=== PATIENT | female | born 1945 | race Caucasian/White ===

== ENCOUNTER → 2019-07-04 | Outpatient (CLI) | payer OTHER ==
[2019-07-04 11:27] LABS: BASOPHILS ABSOLUTE AUTO 0.01 K/mm3 (0.00-0.23); BASOPHILS PERCENT AUTO 0 % (0-2); EOSINOPHILS ABSOLUTE AUTO 0.22 K/mm3 (0.00-0.68); EOSINOPHILS PERCENT AUTO 5 % (0-6); Hematocrit 27.9 % (33.0-51.0); Hemoglobin 8.8 g/dL (11.5-16.0); IMMATURE GRAN ABSOLUTE AUTO 0.02 K/mm3 (0.00-0.10); IMMATURE GRAN PERCENT AUTO 1 % (0-1); LYMPHOCYTES ABSOLUTE AUTO 1.41 K/mm3 (0.84-5.20); LYMPHOCYTES PERCENT AUTO 32 % (21-46); MONOCYTES ABSOLUTE AUTO 0.27 K/mm3 (0.16-1.47); MONOCYTES PERCENT AUTO 6 % (4-13); Mean Corpuscular HGB 30.8 pg (26.0-34.0); Mean Corpuscular HGB Conc 31.5 g/dL (31.5-36.5); Mean Corpuscular Volume 98 fL (80-100); NEUTROPHILS ABSOLUTE AUTO 2.42 K/mm3 (1.96-9.15); NEUTROPHILS PERCENT AUTO 56 % (41-73); Platelet Count 133 K/mm3 (150-400); RDW Coefficient Variation 15.1 % (11.7-14.2); RDW Standard Deviation 54.4 fL (35.1-46.3); Red Blood Cell Count 2.86 M/mm3 (3.80-5.20); White Blood Cell Count 4.35 K/mm3 (4.00-11.30)
[2019-07-04 11:28] LABS: Mean Platelet Volume 13.2 fL (9.1-12.4)
[2019-07-04 11:32] LABS: Albumin, Blood 3.2 g/dL (3.4-5.0); Bilirubin, Total 0.6 mg/dL (0.1-1.0); Calcium, Blood 8.1 mg/dL (8.5-10.1); Creatinine, Blood 1.22 mg/dL (0.40-1.00); Globulin, Blood 3.1 g/dL (2.2-4.0); Potassium, Blood 4.4 mmol/L (3.5-5.5); Total Protein, Blood 6.3 g/dL (6.4-8.2)
== END | disposition home or self-care (01) ==
LOC: LAB SHORT 10:57 → LAB 10:57
PROVIDERS: Registered Nurse Oncology
DX: C34.90 Malignant neoplasm of unspecified part of unspecified bronchus or lung (principal)
CPT/HCPCS: 80053; 85025

== ENCOUNTER 2019-07-24 11:14 | Inpatient (IN) | payer OTHER ==
[~2019-07-24] VITALS: Ht 154.9 cm; Wt 84.6 kg
[2019-07-24 11:58] LABS: PCO2 Arterial 40.6 mmHg (35-45); PO2 Arterial 63.7 mmHg (80-100); pH Blood Arterial 7.44 (7.35-7.45)
[2019-07-24] MEDS ORDERED: OMEPRAZOLE20 MG PO (12:06)
[2019-07-24] MEDS ORDERED: DICLOFENAC SOD100 G1 TOP (12:06)
[2019-07-24] MEDS ORDERED: SPIRIVA RESPIMAT4 GM INH (12:07)
[2019-07-24] MEDS ORDERED: ZOFRAN8 MG PO (12:07)
[2019-07-24] MEDS ORDERED: FLUTICASONE-SA1 EAC4 INH (12:07)
[2019-07-24] MEDS ORDERED: LINZESS290 MCG PO (12:07)
[2019-07-24] MEDS ORDERED: Fosinopril Sodi40 MG PO (12:09)
[2019-07-24] MEDS ORDERED: IPRATROPIUM 0.02% (12:09)
[2019-07-24] MEDS ORDERED: Carvedilol25 MG PO (12:09)
[2019-07-24] MEDS ORDERED: Simvastatin40 MG PO (12:09)
[2019-07-24] MEDS ORDERED: FUROSEMIDE20 MG PO (12:09)
[2019-07-24 12:32] LABS: Hematocrit 29.2 % (33.0-51.0); Hemoglobin 9.2 g/dL (11.5-16.0); Mean Corpuscular HGB Conc 31.5 g/dL (31.5-36.5); Mean Corpuscular Volume 98 fL (80-100); Mean Platelet Volume 11.8 fL (9.1-12.4); Platelet Count 155 K/mm3 (150-400); RDW Coefficient Variation 14.1 % (11.7-14.2); RDW Standard Deviation 50.7 fL (35.1-46.3); Red Blood Cell Count 2.97 M/mm3 (3.80-5.20); White Blood Cell Count 6.03 K/mm3 (4.00-11.30)
[2019-07-24 12:47] LABS: Alanine Aminotransfer (ALT/SGP 16 U/L (12-78); Albumin, Blood 3.2 g/dL (3.4-5.0); Albumin/Globulin Ratio 0.9 (0.8-1.8); Alk Phos 55 U/L (50-136); Anion Gap 9 mmol/L (6-16); Aspartate Aminotrans (AST/SGOT 19 U/L (12-37); Bilirubin, Total 0.7 mg/dL (0.1-1.0); Blood Urea Nitrogen 16 mg/dL (8-24); Bun/Creatinine Ratio 19.2 (12.0-20.0); CO2, Blood 26 mmol/L (21-32); Calcium, Blood 8.8 mg/dL (8.5-10.1); Chloride, Blood 101 mmol/L (98-108); Creatinine, Blood 0.83 mg/dL (0.40-1.00); Globulin, Blood 3.7 g/dL (2.2-4.0); Glomerular Filtration Rate >60 (60-); Glucose, Blood 86 mg/dL (70-99); Potassium, Blood 4.4 mmol/L (3.5-5.5); Sodium, Blood 136 mmol/L (136-145); Total Protein, Blood 6.9 g/dL (6.4-8.2)
[2019-07-24 12:55] LABS: BAND PERCENT MAN 6 % (0-8); BASOPHILS PERCENT MAN 0 % (0-2); EOSINOPHILS PERCENT MAN 0 % (0-6); LYMPHOCYTES ABSOLUTE MAN 0.72 K/mm3 (0.84-5.20); LYMPHOCYTES PERCENT MAN 12 % (21-46); MONOCYTES ABSOLUTE MAN 0.24 K/mm3 (0.16-1.47); MONOCYTES PERCENT MAN 4 % (4-13); NEUTROPHILS ABSOLUTE MAN 5.06 K/mm3 (1.96-9.15); SEG NEUTROPHILS PERCENT MAN 78 % (41-73); TOTAL CELLS COUNTED 100
[2019-07-24] MEDS ORDERED: Aspir 8181 MG PO (15:53)
[2019-07-24] MEDS ORDERED: ALBU90OI INH (15:53)
[2019-07-24] MEDS ORDERED: LUTEIN20 MG PO (15:54)
[2019-07-24] MEDS ORDERED: [UNRECOGNIZED DRUG - CODE] PO (15:54)
[2019-07-24] MEDS ORDERED: Folic Acid0.8 MG PO (15:55)
[2019-07-24] MEDS ORDERED: Loratadine10 MG PO (15:55)
[2019-07-24] MEDS ORDERED: SENNA PLUS 8.61 EACH PO (15:56)
--- NOTE | 2019-07-24 17:28 | NUR ---
PT AOX4 AND COOPERATIVE OF CARE. PT RESTING IN BED AT THIS TIME AND IS ABLE TO ANSWER ALL QUESTIONS. FAMILY PRESENT. PT CURRENTLY ON 4L O2 NASAL CANNULA. WILL CONTINUE TO MONITOR.
--- NOTE | 2019-07-25 01:56 | NUR ---
PHYSICIAN COMMUNICATION GOT A HOLD OF THE FIELD EDUCATION COORDINATOR PHYSICIAN AT 0020 ABOUT THE NEED FOR A 250 ML NS KVO BAG FOR WHEN SHE RECEIVES HER IV ANTIBIOTICS. DR DENTON ORDERED WHAT WAS ASKED FOR.
--- NOTE | 2019-07-25 05:30 | NUR ---
SHIFT SUMMARY PATIENT ALERT AND ORIENTED. VERY PLEASANT TO WORK WITH. SHE HAD NO COMPLAINTS OF PAIN OVERNIGHT AND WAS ABLE TO SLEEP WELL. IV PATENT AND FLUSHED. BED IN LOWEST POSITION WITH WHEELS LOCKED. PATIENT CALLS APPROPRIATELY. CALL LIGHT AND BELONGINGS WITHIN REACH. REPORT GIVEN TO ONCOMING RN.
[2019-07-25 05:37] LABS: BASOPHILS ABSOLUTE AUTO 0.01 K/mm3 (0.00-0.23); BASOPHILS PERCENT AUTO 0 % (0-2); EOSINOPHILS PERCENT AUTO 0 % (0-6); Hematocrit 23.2 % (33.0-51.0); Hemoglobin 7.4 g/dL (11.5-16.0); IMMATURE GRAN ABSOLUTE AUTO 0.02 K/mm3 (0.00-0.10); IMMATURE GRAN PERCENT AUTO 1 % (0-1); LYMPHOCYTES ABSOLUTE AUTO 0.34 K/mm3 (0.84-5.20); LYMPHOCYTES PERCENT AUTO 8 % (21-46); MONOCYTES ABSOLUTE AUTO 0.07 K/mm3 (0.16-1.47); MONOCYTES PERCENT AUTO 2 % (4-13); Mean Corpuscular HGB 30.8 pg (26.0-34.0); Mean Corpuscular HGB Conc 31.9 g/dL (31.5-36.5); Mean Corpuscular Volume 97 fL (80-100); NEUTROPHILS ABSOLUTE AUTO 3.65 K/mm3 (1.96-9.15); NEUTROPHILS PERCENT AUTO 89 % (41-73); Platelet Count 125 K/mm3 (150-400); RDW Standard Deviation 49.3 fL (35.1-46.3); White Blood Cell Count 4.09 K/mm3 (4.00-11.30)
[2019-07-25 05:59] LABS: Percent Saturation 10.1 % (15.0-50.0)
[2019-07-25 06:07] LABS: Alanine Aminotransfer (ALT/SGP 14 U/L (12-78); Albumin, Blood 2.5 g/dL (3.4-5.0); Albumin/Globulin Ratio 0.7 (0.8-1.8); Alk Phos 48 U/L (50-136); Anion Gap 8 mmol/L (6-16); Aspartate Aminotrans (AST/SGOT 16 U/L (12-37); Bilirubin, Total 0.4 mg/dL (0.1-1.0); Blood Urea Nitrogen 22 mg/dL (8-24); Bun/Creatinine Ratio 25.4 (12.0-20.0); CO2, Blood 25 mmol/L (21-32); Calcium, Blood 8.1 mg/dL (8.5-10.1); Chloride, Blood 103 mmol/L (98-108); Creatinine, Blood 0.87 mg/dL (0.40-1.00); Globulin, Blood 3.5 g/dL (2.2-4.0); Glomerular Filtration Rate >60 (60-); Glucose, Blood 155 mg/dL (70-99); Potassium, Blood 4.1 mmol/L (3.5-5.5); Sodium, Blood 136 mmol/L (136-145)
[2019-07-25 06:13] LABS: Thyroid Stimulating Hormone 0.526 uIU/mL (0.360-4.800)
[2019-07-25 11:54] LABS: Adenovirus Not Detected (NOT DETECT); Bordetella pertussis Not Detected (NOT DETECT); Chlamydophila pneumoniae Not Detected (NOT DETECT); Coronavirus 229E Not Detected (NOT DETECT); Coronavirus HKU1 Not Detected (NOT DETECT); Coronavirus NL63 Not Detected (NOT DETECT); Coronavirus OC43 Not Detected (NOT DETECT); Human Metapneumovirus Not Detected (NOT DETECT); Human Rhinovirus/Enterovirus Not Detected (NOT DETECT); Influenza A Not Detected (NOT DETECT); Influenza A/2009-H1 Not Detected (NOT DETECT); Influenza A/H1 Not Detected (NOT DETECT); Influenza A/H3 Not Detected (NOT DETECT); Influenza B Not Detected (NOT DETECT); Mycoplasma pneumoniae Not Detected (NOT DETECT); Parainfluenza Virus 1 Detected (NOT DETECT); Parainfluenza Virus 2 Not Detected (NOT DETECT); Parainfluenza Virus 3 Not Detected (NOT DETECT); Parainfluenza Virus 4 Not Detected (NOT DETECT); Respiratory Syncytial Virus Not Detected (NOT DETECT)
[2019-07-25 12:19] LABS: Hematocrit 22.7 % (33.0-51.0); Hemoglobin 7.2 g/dL (11.5-16.0)
--- NOTE | 2019-07-25 17:50 | NUR ---
PATIENT A/OX4, UP INDEPENDENTLY IN ROOM. 20G IV TO L FA WNL AND SL. WILL RECEIVED 1 UNIT OF BLOOD THIS EVENING FOR HGB OF 7.2. VSS, ON 4LO2 TO MAINTAIN SATS. DENIES ANY PAIN OR DISCOMFORT. READIATION PRECAUTIONS IN PLCE THROUGH 07/26. BRUSING TO MIL, OTHERWISE SKIN INTACT. CALLS APPROPRIATELY FOR ASSISTANCE.
[2019-07-26 05:06] LABS: BASOPHILS PERCENT AUTO 0 % (0-2); EOSINOPHILS PERCENT AUTO 0 % (0-6); Hematocrit 27.4 % (33.0-51.0); Hemoglobin 8.7 g/dL (11.5-16.0); IMMATURE GRAN ABSOLUTE AUTO 0.08 K/mm3 (0.00-0.10); IMMATURE GRAN PERCENT AUTO 2 % (0-1); LYMPHOCYTES ABSOLUTE AUTO 0.65 K/mm3 (0.84-5.20); LYMPHOCYTES PERCENT AUTO 12 % (21-46); MONOCYTES ABSOLUTE AUTO 0.35 K/mm3 (0.16-1.47); MONOCYTES PERCENT AUTO 6 % (4-13); Mean Corpuscular HGB 30.2 pg (26.0-34.0); Mean Corpuscular HGB Conc 31.8 g/dL (31.5-36.5); Mean Corpuscular Volume 95 fL (80-100); Mean Platelet Volume 11.7 fL (9.1-12.4); NEUTROPHILS ABSOLUTE AUTO 4.35 K/mm3 (1.96-9.15); NEUTROPHILS PERCENT AUTO 80 % (41-73); Platelet Count 170 K/mm3 (150-400); RDW Coefficient Variation 14.8 % (11.7-14.2); RDW Standard Deviation 51.3 fL (35.1-46.3); Red Blood Cell Count 2.88 M/mm3 (3.80-5.20); White Blood Cell Count 5.43 K/mm3 (4.00-11.30)
[2019-07-26 05:34] LABS: Albumin, Blood 2.8 g/dL (3.4-5.0); Anion Gap 5 mmol/L (6-16); Blood Urea Nitrogen 22 mg/dL (8-24); Bun/Creatinine Ratio 25.5 (12.0-20.0); CO2, Blood 28 mmol/L (21-32); Calcium, Blood 8.5 mg/dL (8.5-10.1); Chloride, Blood 106 mmol/L (98-108); Creatinine, Blood 0.86 mg/dL (0.40-1.00); Glomerular Filtration Rate >60 (60-); Glucose, Blood 100 mg/dL (70-99); Phosphorus, Blood 2.6 mg/dL (2.5-4.9); Potassium, Blood 4.5 mmol/L (3.5-5.5); Sodium, Blood 139 mmol/L (136-145)
--- NOTE | 2019-07-26 06:14 | NUR ---
HOT CAR OPERATOR SUMMARY PT AAOX4 AND VERY PLEASANT. INDEPENDENT IN ROOM. PT RECIEVED 1 UNIT PRBC'S AT START OF SHIFT, HGB 8.7 THIS AM UP FROM 7.2 YESTERDAY. PT ON 4L O2 VIA NC, WEARS 2L O2 AT BASELINE. O2 SATS 92-94%. PT REPORTED DIFFICULTY BREATHING THIS AM WITH O2 SATS 88-91. ASSISTED PT WITH FLUTTER VALVE. PT ABLE TO COUGH UP MODERATE AMOUNT OF SPUTUM AND STATED HER BREATHING "FEELS A BIT BETTER". O2 SATS BACK UP TO 94% AFTER FLUTTER VALVE USE. VSS, WILL CONTINUE TO MONITOR.
[2019-07-26 14:01] LABS: Stool Occult Blood Guaiac 1 Neg (Neg)
--- NOTE | 2019-07-26 17:52 | NUR ---
PATIENT IS A/OX4, UP INDEPENDENTLY IN ROOM. PATIENT VERY SOB WITH EXERTION AND AT REST SOMETIMES. SATS 96% ON 4LO2, BUT PATIENT DOES NOT WANT IT WEANED. PATIENT COUGHING UP LARGE AMOUNT OF THICK YELLOW SPUTUM TODAY. RT TX SCHEDULED AND PRN. USING FLUTTER VALVE. STARTED ON SLUMEDROL TODAY. PATIENT HAS NOT HAD ANY SLEEP FOR A FEW DAYS NOW AND MELATONIN ORDERED FOR TONIGHT. 20G IV TO R AC WNL AND SL. LEVAQUIN DAILY TO TREAT PNA. CALM AND COOPERATIVE WITH CARE, USES CALL LIGHT APPROPRIATELY FOR ASSISTANCE.
--- NOTE | 2019-07-27 04:24 | NUR ---
SHIFT SUMMARY- PT. A&O, PLEASANT AND COOPERATIVE WITH CARE. INDEPENDENT IN ROOM. PT. HAS BEEN COUGHING OCCASIONALLY T/O THE NIGHT. RECEIVING BREATHING TX'S FROM RT AND USING FLUTTER VALVE WELL. MELATONIN GIVEN PER PT. REQUEST. PT. RESTED COMFORTABLY IN BED, NO APPARENT DISTRESS NOTED. DENIED ANY PAIN OR DISCOMFORT T/O THE NIGHT. CALL LIGHT WITHIN REACH AND SIDE RAILS UP X2. WILL CONT TO MONITOR.
[2019-07-27 05:02] LABS: BASOPHILS PERCENT AUTO 0 % (0-2); EOSINOPHILS PERCENT AUTO 0 % (0-6); Hematocrit 27.4 % (33.0-51.0); Hemoglobin 8.9 g/dL (11.5-16.0); IMMATURE GRAN ABSOLUTE AUTO 0.01 K/mm3 (0.00-0.10); IMMATURE GRAN PERCENT AUTO 1 % (0-1); LYMPHOCYTES PERCENT AUTO 21 % (21-46); MONOCYTES ABSOLUTE AUTO 0.13 K/mm3 (0.16-1.47); MONOCYTES PERCENT AUTO 9 % (4-13); Mean Corpuscular HGB 30.8 pg (26.0-34.0); Mean Corpuscular HGB Conc 32.5 g/dL (31.5-36.5); Mean Corpuscular Volume 95 fL (80-100); Mean Platelet Volume 11.1 fL (9.1-12.4); NEUTROPHILS ABSOLUTE AUTO 0.99 K/mm3 (1.96-9.15); NEUTROPHILS PERCENT AUTO 69 % (41-73); Platelet Count 160 K/mm3 (150-400); RDW Coefficient Variation 14.5 % (11.7-14.2); RDW Standard Deviation 50.7 fL (35.1-46.3); Red Blood Cell Count 2.89 M/mm3 (3.80-5.20); White Blood Cell Count 1.43 K/mm3 (4.00-11.30)
[2019-07-27 05:23] LABS: Albumin, Blood 2.8 g/dL (3.4-5.0); Anion Gap 8 mmol/L (6-16); Blood Urea Nitrogen 20 mg/dL (8-24); Bun/Creatinine Ratio 24.9 (12.0-20.0); CO2, Blood 25 mmol/L (21-32); Calcium, Blood 8.6 mg/dL (8.5-10.1); Chloride, Blood 102 mmol/L (98-108); Glomerular Filtration Rate >60 (60-); Glucose, Blood 114 mg/dL (70-99); Phosphorus, Blood 4.5 mg/dL (2.5-4.9); Potassium, Blood 4.5 mmol/L (3.5-5.5); Sodium, Blood 135 mmol/L (136-145)
--- NOTE | 2019-07-27 18:12 | NUR ---
SHIFT SUMMARY PLEASANT. OX3. LUNG CA. DECREASED APPETITE. DR. SMITH PATIENT CONSULT PLACED TODAY DUE TO PT'S NEUTROPENIA. GRANIX STARTED. NO OTHER ACUTE CHANGES.
[2019-07-28 05:14] LABS: Hematocrit 27.3 % (33.0-51.0); Hemoglobin 8.9 g/dL (11.5-16.0); Mean Corpuscular HGB 30.8 pg (26.0-34.0); Mean Corpuscular HGB Conc 32.6 g/dL (31.5-36.5); Mean Corpuscular Volume 95 fL (80-100); Mean Platelet Volume 11.4 fL (9.1-12.4); Platelet Count 159 K/mm3 (150-400); RDW Coefficient Variation 14.2 % (11.7-14.2); RDW Standard Deviation 48.5 fL (35.1-46.3); Red Blood Cell Count 2.89 M/mm3 (3.80-5.20)
[2019-07-28 05:43] LABS: BAND PERCENT MAN 9 % (0-8); BASOPHILS PERCENT MAN 0 % (0-2); EOSINOPHILS PERCENT MAN 0 % (0-6); LYMPHOCYTES PERCENT MAN 8 % (21-46); MONOCYTES PERCENT MAN 10 % (4-13); SEG NEUTROPHILS PERCENT MAN 73 % (41-73); TOTAL CELLS COUNTED 100
--- NOTE | 2019-07-28 06:23 | NUR ---
SHIFT SUMMARY PATIENT ALERT AND ORIENTED ALL NIGHT. SHE RESTED IN BED ALL NIGHT. SHE IS CURRENTLY ON 4 LITERS OF O2 VIA NASAL CANULA. SHE HAS BEEN HAVING A NONPRODUCTIVE COUGH WHICH IS HELPED BY MEDICATION. IV PATED AND FLUSHED. BED IN LOWEST POSITION WITH WHEELS LOCKED. CALL LIGHT WITHIN REACH. REPORT GIVEN TO ONCOMING RN.
[2019-07-28 06:26] LABS: Albumin, Blood 2.8 g/dL (3.4-5.0); Anion Gap 6 mmol/L (6-16); Blood Urea Nitrogen 24 mg/dL (8-24); Bun/Creatinine Ratio 31.7 (12.0-20.0); CO2, Blood 29 mmol/L (21-32); Calcium, Blood 8.7 mg/dL (8.5-10.1); Chloride, Blood 102 mmol/L (98-108); Creatinine, Blood 0.76 mg/dL (0.40-1.00); Glomerular Filtration Rate >60 (60-); Glucose, Blood 130 mg/dL (70-99); Phosphorus, Blood 3.7 mg/dL (2.5-4.9); Potassium, Blood 4.4 mmol/L (3.5-5.5); Sodium, Blood 137 mmol/L (136-145)
--- NOTE | 2019-07-28 08:31 | NUR ---
PT HAS WORSENED SINCE HER ADMITION. PT VERY DIMINISHED LUNG SOUNDS THROUGHOUT AND IS SITTING UP IN BED HAVING TO WORK TO TAKE IN BREATHS. PT IS GOOD ON O2 RUNNING AROUND 96%. PT ALSO HAS 2+ EDEMA BILATERALLY. PT DID NOT HAVE EDEMA UPON ADMIT. DR DENTON NOTIFIED OF CONCERNS IMMEDIATELY THIS AM.
--- NOTE | 2019-07-28 17:12 | NUR ---
PT AOX4 AND COOPERATIVE OF CARE. PT HAS BEEN HAVING A HARD DAY TODAY. AFTER RECIEVING IV DOSE OF LASIX TODAY AND GETTING SOME FLUID OFF. PT IS NOT WORKING SO HARD TO BREATH AND HER EDEMA HAS IMPROVED FROM THE START OF SHIFT. PT TREATED FOR COUGH PER EMAR. PT CALL APPROPRIATELY. WILL CONTINUE TO MONITOR CALL LIGHT WITHIN REACH.
--- NOTE | 2019-07-29 04:38 | NUR ---
SHIFT SUMMARY PT HAD NO NEW ISSUES REPORTED. PT COUGH IN NOTABLY BETTER. PT HAS BEEN ABLE TO SLEEP WELL T/O SHIFT. PT DOES BECOME SOB WITH LITTLE EXERTION. PT HAS BEEN USING BSC FOR TOILETING TO DECREASE EFFORT. PT CURRENTLY SLEEPING AND IN NO DISTRESS. CALL LIGHT IN REACH.
--- NOTE | 2019-07-29 15:21 | NUR ---
Brief initial palliative care consult: Carol Ann is a 74 year old with a history of COPD, O2 dependent at baseline, diastolic heart failure, obesity and recent lung cancer diagnosis. She is receiving radiation and chemotherapy cancer treatments. Her oncologist is Dr. Cha. She was admitted on 07/24/19 with pneumonia. She states she is feeling better and hopes to go home before [place]. Entered room and introduced self. She stated to me that she didn't need to talk to anyone about making decisions because she has already made up her mind. She states when she is discharged she plans to see Dr. Cha and tell him that she no longer wants to pursue treatments. She states she wants to focus on the quality of her life for however long she has left. It appears she has had time to think about her decision because she seems to be at peace with it. Support therapeutic visit done. She states she has a strong family support system at home and she says they have discussed it and are supportive of her decision. She states she is starting to feel better and denies any needs at present. She is looking forward to going home. Discussed hospice as an option to assist with increasing the qualify of her life. Hospice can be ordered once she is discharged and has a chance to speak with Dr. Cha about it. PC will remain avaialable as needed for symptom managment or other care planning as needed. Nursing updated.
--- NOTE | 2019-07-29 17:23 | NUR ---
PT AOX4 AND COOPERATIVE OF CARE. PT HAS CONTINUED TO USE BEDSIDE COMMODE SO SHE DOES NOT GET SOB TRANSFERING. PT IS VOIDING WELL AND HER EDEMA OF LE HAS IMPROVED, HER FEET ARE NOT TIGHT AND LOOK WRINKLED AND FEEL SOFTER.PT ALSO IS HAVING AND EASIER TIME TODAY BREATHING COMPARED TO YESTERDAY. PT CALLS APPROPRIATELY AND IS PLEASANT WILL CONTNIUE TO MONITOR. DENIES ANY PAIN AT THIS TIME.
--- NOTE | 2019-07-30 05:51 | NUR ---
SHIFT SUMMARY AOX4. REPORTS 5/10 ACHY PAIN IN BLE, MEDICATED 2X W/TYLENOL PER ORDERS. WHEN REASSESSED PT STATES PAIN DECREASES TO 2/10. REPORTS DIFFICULTY FALLING ASLEEP & GAVE BENADRYL PER ORDERS, SLEPT WELL FOR A FEW HOURS. HAS DRY HACKING NON-PRODUCTIVE COUGH & WAS MEDICATED 2X W/TESSELON PERLES. LUNGS SOUND DIM T/O; ON 2L O2 VIA NC (BASELINE); REPORTS DYSPNEA W/EXERTION; ASKED FOR BREATHING TX 1X & WAS MEDICATED PER RT. CALL LIGHT IS IN REACH & I WCTM UNTIL DAY RN ASSUMES CARE.
--- NOTE | 2019-07-30 17:32 | NUR ---
Continuous Pulse Ox Received verbal orders to d/c continuous pulse ox d/t patient at baseline per Dr. Briones.
--- NOTE | 2019-07-30 18:25 | NUR ---
Shift Summary A/O and pleasant. Pt's blood pressure has been elevated today, last blood pressure was 168/75. She was started today on Lisinopril as a substitute for her home medication. Continues to have nonproductive cough, medicated as needed per EMAR. Pt c/o 2/10 pain in bilateral legs, medicated x 2. No other complaints or concerns. Will monitor until report given.
--- NOTE | 2019-07-31 04:22 | NUR ---
SHIFT SUMMARY NO ACUTE CHANGES THIS SHIFT. AOX4. VSS. REPORTS MILD ACHY PAIN 3-10 IN BLE, MEDICATED W/TYLENOL & REPORTS RELIEF. DENIES DYSPNEA @ REST. E/U RESPIRATIONS. SPO2 >90% ON 2L NC (BASELINE). MEDICATED 2X W/TESSALON FOR DRY HACKING COUGH. CALL LIGHT IN REACH & I WILL CONTINUE TO MONITOR.
[2019-07-31 08:24] LABS: Anion Gap 2 mmol/L (6-16); Blood Urea Nitrogen 23 mg/dL (8-24); Bun/Creatinine Ratio 26.6 (12.0-20.0); CO2, Blood 37 mmol/L (21-32); Calcium, Blood 8.3 mg/dL (8.5-10.1); Chloride, Blood 98 mmol/L (98-108); Creatinine, Blood 0.87 mg/dL (0.40-1.00); Glomerular Filtration Rate >60 (60-); Glucose, Blood 84 mg/dL (70-99); Potassium, Blood 3.8 mmol/L (3.5-5.5); Sodium, Blood 137 mmol/L (136-145)
[2019-07-31] MEDS ORDERED: FURO20 PO (11:23)
[2019-07-31] MEDS ORDERED: BENZ100A PO (11:23)
[2019-07-31] MEDS ORDERED: PRED20 PO (11:24)
[2019-07-31] MEDS ORDERED: GUAI600T33 PO (11:24)
[2019-07-31] MEDS ORDERED: LEVFLO500 PO (11:25)
--- NOTE | 2019-07-31 13:31 | NUR ---
PT DISCHARGED PT AND FAMILY VERBALIZED UNDERSTANDING OF THE DC INSTRUCTIONS, PT PRESCRIPTIONS [facility]XED TO [facility] REQUEST[facility], THE PT APPEARED TO BE BREATHING EASILY ON O2 VIA NC, THE PT APPLIED HER HOME O2, THE PT WAS REMINDED TO CALL HER PCP ON THURSDAY FOR POST HOSPITAL REVIEW, THE PT WAS TRANSFERED VIA WHEELCHAIR ACCOMPANIED BY FAMILY AND RN
== END 2019-07-31 13:11 | disposition home or self-care (01) | DRG 193 ==
LOC: ER 11:14 → MEDS 15:03 → ENPENDDIS 07-31 12:01 → MEDS 07-31 13:11
PROVIDERS: Emergency Medicine; Family Medicine; Hospitalist; ADMIT Internal Medicine
PROC: 30233N1 Transfusion of Nonautologous Red Blood Cells into Peripheral Vein, Percutaneous Approach (ICD-10-PCS; principal; 2019-07-25)
DX: J12.2 Parainfluenza virus pneumonia (principal); J96.21 Acute and chronic respiratory failure with hypoxia; J44.1 Chronic obstructive pulmonary disease with (acute) exacerbation; J44.0 Chronic obstructive pulmonary disease with (acute) lower respiratory infection; I50.32 Chronic diastolic (congestive) heart failure; E87.3 Alkalosis; C34.90 Malignant neoplasm of unspecified part of unspecified bronchus or lung; E87.1 Hypo-osmolality and hyponatremia; D64.9 Anemia, unspecified; I11.0 Hypertensive heart disease with heart failure; D64.81 Anemia due to antineoplastic chemotherapy; G47.00 Insomnia, unspecified; Z99.81 Dependence on supplemental oxygen; Z92.21 Personal history of antineoplastic chemotherapy; Z92.3 Personal history of irradiation; Z87.891 Personal history of nicotine dependence; Z88.0 Allergy status to penicillin; Z79.51 Long term (current) use of inhaled steroids; Z79.899 Other long term (current) drug therapy
CPT/HCPCS: 0099U; 36415; 36430; 36600; 71045; 80048; 80053; 80069; 82272; 82728; 82803; 83540; 83550; 83605; 83735; 83880; 84443; 85014; 85018; 85025; 86850; 86900; 86901; 86923; 87040; 87070; 87106; 87205; 93005; 93010; 94640; 94644; 94760; 96361; 96374; 97110; 97162; 97530; 99285-25; A9270; J0696; J1447; J1650; J1940; J1956; J2930; J7030; J7050; J7512; P9016; Q0163

== ENCOUNTER 2019-10-09 14:49 | Inpatient (IN) | payer OTHER ==
[~2019-10-09] VITALS: Ht 157.5 cm; Wt 85.1 kg
[~2019-10-09 14:49] MED LIST: ALBU90OI INH; Aspir 8181 MG PO; B-121000 MC3 PO; BENZ100A PO; Carvedilol25 MG PO; DICLOFENAC SOD100 G1 TOP; FLUTICASONE-SA1 EAC4 INH; FURO20 PO; FUROSEMIDE20 MG PO; Folic Acid0.8 MG PO; Fosinopril Sodi40 MG PO; GUAI600T33 PO; IPRATROPIUM 0.02%; LEVFLO500 PO; LINZESS290 MCG PO; LUTEIN20 MG PO; Loratadine10 MG PO; OMEPRAZOLE20 MG PO; PRED20 PO; SENNA PLUS 8.61 EACH PO; SPIRIVA RESPIMAT4 GM INH; Simvastatin40 MG PO; ZOFRAN8 MG PO
[2019-10-09 15:35] LABS: BASOPHILS ABSOLUTE AUTO 0.03 K/mm3 (0.00-0.23); BASOPHILS PERCENT AUTO 0 % (0-2); EOSINOPHILS ABSOLUTE AUTO 0.03 K/mm3 (0.00-0.68); EOSINOPHILS PERCENT AUTO 0 % (0-6); Hematocrit 23.7 % (33.0-51.0); Hemoglobin 7.7 g/dL (11.5-16.0); IMMATURE GRAN ABSOLUTE AUTO 0.14 K/mm3 (0.00-0.10); IMMATURE GRAN PERCENT AUTO 1 % (0-1); LYMPHOCYTES ABSOLUTE AUTO 0.54 K/mm3 (0.84-5.20); LYMPHOCYTES PERCENT AUTO 3 % (21-46); MONOCYTES ABSOLUTE AUTO 0.94 K/mm3 (0.16-1.47); MONOCYTES PERCENT AUTO 5 % (4-13); Mean Corpuscular HGB 28.9 pg (26.0-34.0); Mean Corpuscular HGB Conc 32.5 g/dL (31.5-36.5); Mean Corpuscular Volume 89 fL (80-100); Mean Platelet Volume 10.8 fL (9.1-12.4); NEUTROPHILS ABSOLUTE AUTO 16.93 K/mm3 (1.96-9.15); NEUTROPHILS PERCENT AUTO 91 % (41-73); Platelet Count 216 K/mm3 (150-400); RDW Coefficient Variation 16.1 % (11.7-14.2); RDW Standard Deviation 52.2 fL (35.1-46.3); Red Blood Cell Count 2.66 M/mm3 (3.80-5.20); White Blood Cell Count 18.61 K/mm3 (4.00-11.30)
[2019-10-09] MEDS ORDERED: ALPRAZOLAM0.5 MG PO (15:39)
[2019-10-09] MEDS ORDERED: PRO-AIR (15:44)
[2019-10-09] MEDS ORDERED: GUAI600T33 PO (15:46)
[2019-10-09 15:59] LABS: Albumin, Blood 2.4 g/dL (3.4-5.0); Albumin/Globulin Ratio 0.6 (0.8-1.8); Bilirubin, Total 0.3 mg/dL (0.1-1.0); Bun/Creatinine Ratio 14.2 (12.0-20.0); Calcium, Blood 8.1 mg/dL (8.5-10.1); Creatinine, Blood 2.18 mg/dL (0.40-1.00); Globulin, Blood 3.7 g/dL (2.2-4.0); Potassium, Blood 4.2 mmol/L (3.5-5.5); Total Protein, Blood 6.1 g/dL (6.4-8.2)
[2019-10-09] MEDS ORDERED: FLUTICASONE-SA1 EAC4 INH (16:08)
[2019-10-09] MEDS ORDERED: Flonase 0.05% N16 GM (16:14)
[2019-10-09] MEDS ORDERED: SENN187 PO (16:14)
[2019-10-09] MEDS ORDERED: Atrovent Inha12.9 GM INH (16:15)
[2019-10-09 16:21] LABS: Source, Urine Clean Catch
[2019-10-09 16:39] LABS: Appearance, Urine Hazy (Clear); Bilirubin, Urine Neg (Neg); Blood, Urine 2+ (Neg); Color, Urine Yellow (P-Yellow); Glucose Qualitative, Urine Neg (Neg); Ketones, Urine Neg (Neg); Leukocyte Esterase, Urine 1+ (Neg); Nitrite, Urine Neg (Neg); Protein, Urine 2+ (Neg); Urobilinogen, Urine NORM (Normal)
[2019-10-09 17:00] LABS: Bacteria Many /hpf; Mucus Light (0-Heavy); Squamous Epithelial Cells Mod /hpf (Few)
--- NOTE | 2019-10-09 18:15 | NUR ---
ASSUMED PATIENT CARE. PATIENT HAS EQUAL BILATERAL CHEST RISE WITH BREATH. NO SIGNS OF ACUTE DISTRESS, WCTM.
--- NOTE | 2019-10-09 19:15 | NUR ---
RELINQUISHED PATIENT CARE.
--- NOTE | 2019-10-09 19:15 | NUR ---
Assumed Care Pt presents in bed, echo in progress. VSS. No acute distress noted. Pt conversing appropriately and engaging in care. Will continue to monitor.
--- NOTE | 2019-10-09 19:17 | NUR ---
PATIENT ARRIVED FROM ED THIS EVENING. PATIENT RECENTLY TREATED WITH CHEST RADIATION THERAPY FOR LUNG CANCER. PATIENT HAS ENDORSED LOW PO INTAKE IN LAST FEW WEEKS. PLAN IS TO REHYDRATE AND ASSESS POSSIBLE KIDNEY INJURY. PATIENT HAS LOW SODIUM LEVEL, PLAN IS TO RECHECK THIS EVENING.
--- NOTE | 2019-10-09 21:50 | NUR ---
Update Echo completed. Pt stand transfer with 1 to C for voiding. Increased SOB noted with transfer. RT called in for tx, flutter valve given by RT and pt instructed on usage. Pt with improved shortness of breath while at rest. Cough present and persistant. Productive. Pt is alert and oriented, able to make needs known with call light. See shift assessment for detailed systems assessment. Will continue to monitor.
--- NOTE | 2019-10-10 00:42 | NUR ---
Pt with persistant cough throughout night. Provider called and made aware, orders recieved.
[2019-10-10 04:30] LABS: Bun/Creatinine Ratio 14.1 (12.0-20.0); Calcium, Blood 7.6 mg/dL (8.5-10.1); Creatinine, Blood 1.98 mg/dL (0.40-1.00); Potassium, Blood 4.1 mmol/L (3.5-5.5)
--- NOTE | 2019-10-10 05:33 | NUR ---
Shift Summary Pt with continued cough this shift - productive with thick brown sputum. RT called twice this shift for PRN breathing tx d/t SOB and wheezing noted in middle and Bilat LL. No crackles heard on auscultation. Fluids infusing 150 mls/hr per orders. Na+ improved to 122 this AM. VSS. BSC with SBA. Tele shows afib in 80-90's throughout shift. Edema to BLE. Will continue to monitor until day RN assumes care.
--- NOTE | 2019-10-10 07:30 | NUR ---
ASSUMED PATIENT CARE. PATIENT SITTING COMFORTABLY IN BED, ASSISTED IN REPOSITIONING. PATIENT CONVERSING COMFORTABLY WITH NURSING STAFF, NO SIGNS OF ACUTE DISTRESS. WCTM.
--- NOTE | 2019-10-10 09:59 | NUR ---
PATIENT CALLED NURSE DURING COUGHING FIT, COMPLAINS OF SOB. O2 SAT OF 92, NASAL CANNULA INCREASED TO 3 L. WCTM.
--- NOTE | 2019-10-10 15:42 | NUR ---
Initial Visit: Palliative Care Consult for Goals of Care. Pt is A&OX4 and reports 7/10 generalized pain. She reports current regimen is managing her pain. She reports moderate dyspnea due to the coughing. Pt also appears mildly anxious. Pt reports difficulty sleeping at night with no benefit from current regimen. Engaged in therapeutic discussion regarding goals of care. Pt reports living with her son and at baseline is independent of her ADLs. Pt reports receiving final radiation treatment approximately 10 days ago. Pt reports plan is to receiving imaging test in approximately 8 weeks to determine if radiation treatment was beneficial. Pt also reports receiving chemotherapy sometime back but did not tolerate. She states the next step is to determine if she qualifies for immunotherapy. Pt states if she had to do these treatments all over again she would not pursue treatment. Pt reports cancer treatment was difficult for her. Pt states if she can expect simmilar side effects for immunotherapy she may not pursue treatment. Suggested to discuss her concerns with her oncologist. Discussed hospice as an option at any time she decides to stop treatment. Pt expresses appreciation of visit. No other concerns reported at this time. Spoke with bedside RNs Rosa Maria and Marion. Discussed case and Pt's concerns regarding cough and sleep. Spoke with Dr Silva and relayed Pt's concerns. Placed order for Ativan 0.5mg to 1mg PO TID PRN for anxiety or sleep and D/C Xanax per V/O from Dr Silva. Palliative Care will remain available for symptom management and therapeutic visits.
--- NOTE | 2019-10-10 18:56 | NUR ---
PATIENT HAD PRODUCTIVE COUGHING SPELLS THROUGH MORNING, COUGH MEDICATIONS ON BOARD AND WERE EFFECTIVE. PATIENT'S SODIUM LEVEL CONTINUES TO TREND UP IN THE CORRECT DIRECTION. CONCERN OF ACUTE KIDNEY INJURY, CONTINUOUS IV FLUIDS RUNNIGN. PATIENT IS IN A FIB, NO PRIOR HISTORY OF THIS DIAGNOSIS. DOES HAVE HX OF CHF. HX COPD, IN ADDITION TO COUGH MEDICATIONS RECIEVING RT TX.
[2019-10-11 04:46] LABS: Bun/Creatinine Ratio 16.8 (12.0-20.0); Calcium, Blood 7.7 mg/dL (8.5-10.1); Creatinine, Blood 1.31 mg/dL (0.40-1.00); Potassium, Blood 4.2 mmol/L (3.5-5.5)
--- NOTE | 2019-10-11 05:28 | NUR ---
10/11/19 0530 PT SLEEPING NOW. SHE HAD C/O NOT BEING ABLE TO SLEEP FOR LONGER THAN 15 MINUTES BY RN HAS SEEN HER SLEEPING FOR UP TO ONE HOUR. VITALS ARE STABLE STABLE THIS AM. STILL HAVING SOB WITH ACTIVITY AND COUGHING. NON-PRODUCTIVE COUGH. SEE MAR FOR MEDS GIVEN FOR COUGH AND ONCE FOR ANXIETY. SODIUM ON CHEM PANEL IS BETTER THAN YESTERDAY. IV FLUIDS RUNNING AT 150 ML/HOUR.
[2019-10-11 09:44] LABS: Adenovirus Not Detected (NOT DETECT); Bordetella pertussis Not Detected (NOT DETECT); Chlamydophila pneumoniae Not Detected (NOT DETECT); Coronavirus 229E Not Detected (NOT DETECT); Coronavirus HKU1 Not Detected (NOT DETECT); Coronavirus NL63 Not Detected (NOT DETECT); Coronavirus OC43 Not Detected (NOT DETECT); Human Metapneumovirus Not Detected (NOT DETECT); Human Rhinovirus/Enterovirus Not Detected (NOT DETECT); Influenza A Not Detected (NOT DETECT); Influenza A/2009-H1 Not Detected (NOT DETECT); Influenza A/H1 Not Detected (NOT DETECT); Influenza A/H3 Not Detected (NOT DETECT); Influenza B Not Detected (NOT DETECT); Mycoplasma pneumoniae Not Detected (NOT DETECT); Parainfluenza Virus 1 Not Detected (NOT DETECT); Parainfluenza Virus 2 Not Detected (NOT DETECT); Parainfluenza Virus 3 Not Detected (NOT DETECT); Parainfluenza Virus 4 Not Detected (NOT DETECT); Respiratory Syncytial Virus Not Detected (NOT DETECT)
--- NOTE | 2019-10-11 10:26 | NUR ---
Pt resting in bed and appears dyspneic and anxious. Pt reports not feeling well and would prefer not to visit at this time. Pt confirms feeling anxious and is agreeable with receiving anti anxiety medication. Spoke with RNs Kacy and Marion. Relayed request for axniety medication. Kacy will offer medication. Palliative Care will remain available.
--- NOTE | 2019-10-11 14:15 | NUR ---
UPDATE PT ALERT AND ORIENTED. PT CONPLAINING OF SOB. LS WHEEZES IN THE BASES AND CRACKLES IN LEFT BASE. O2 SATS REMAIN ABOVE 90% ON 3L NC. RR INCREASED MID 20'S. RT CALLED FOR BREATHING TX. PT REPORTS BREATHING TX INEFFECTIVE. DR. SHEPARD CALLED AND NEW ORDERS FOR LASIX PROVIDED. PT SITTING AT EDGE OF BED. WILL CONTINUE TO MONITOR CLOSELY.
--- NOTE | 2019-10-11 17:36 | NUR ---
SHIFT SUMMARY PT ALERT AND ORIENTED. PT ANXIOUS AT TIMES. VS STABLE. O2 SATS HAVE REMAINED ABOVE 90% ON 3L NC. LS STILL WHEEZES THROUGHOUT AND COARSE IN LLL. PT HAVING FREQUENT URINE OUTPUT SINCE LASIX ADMINISTRATION. PT REPORTS BREATHING IS IMPROVED. PT SITTING UP EATING DINNER. SON AT BEDSIDE. NO OTHER COMPLAINTS AT THIS TIME. WILL CONTINUE TO MONITOR AND REPORT TO ONCOMING RN. CALL LIGHT IN REACH.
--- NOTE | 2019-10-11 19:40 | NUR ---
PROVIDER CALLED Call made to provider regarding pt's current respriatory distress. Pt is labored breathing, tripoding, coarse and wheezes throughout. Lasix 40 mg IV now ordered per provider.
--- NOTE | 2019-10-11 21:45 | NUR ---
PROVIDER CALLED Pt with continued labored breathing despite implemented interventions of lasix. RT recommending BD protocol. Provider called and orders recieved for BD Protocol. RT at bedside now implementing interventions per provider order. Will continue to monitor.
[2019-10-12 04:22] LABS: Bun/Creatinine Ratio 19.8 (12.0-20.0); Calcium, Blood 8.3 mg/dL (8.5-10.1); Creatinine, Blood 1.16 mg/dL (0.40-1.00); Potassium, Blood 4.7 mmol/L (3.5-5.5)
--- NOTE | 2019-10-12 06:03 | NUR ---
Shift Summary Pt with increasing oxygen demand overnight. Lungs sounds wet and wheezes noted this shift. Pt in mild to moderate respiratory distress throughout much of the night. RT to bedside multiple times. Provider called twice for interventions and updates on pt condition. CPAP/BIPAP placed on pt and pt responded well to intervention. With the administration of 1mg Ativan PO per orders, pt able to rest with less anxiety on BIPAP. Lasix given x1 this shift per orders. Pt remains alert and oriented, BP and HR stable, Afib on tele. No acute events except what has been previously noted. Pt overall distressed this shift, stating "I just can't breathe, honey" multiple times. Oxygen saturations >90% with interventions of BIPAP. persistant cough remaining. Will continue to montior and provide care until day RN assumes care.
--- NOTE | 2019-10-12 08:32 | NUR ---
AM NOTE... ASSUMED CARE OF PT APROX 0700, PT IS A&Ox4, PT'S CURRENT RESPIRATORY RATE IS 20-28 EVEN BUT LABORED, PT IS SPEAKING IN 2-3 WORD SENTENCES AND TRIPODING. PT IS ON 3L NC WHICH IS HER BASELINE. PT'S VS STABLE AT THSI TIME. L/S TIGHT, COARSE RHONCHI WITH WHEEZING HEARD T/O. PT FEELS HER SPUTUM IS "TO THICK TO COUGH UP." FLUTTER VALVE ENCOURAGED. PT HAS 2+ PITTING EDEMA TO HER BLE. NONPITTING NOTED TO HER BUE. PROVIDER AT THE BEDSIDE, ORDERED CXR, RESULTS SHOW PLURALEFFUSION PT IS TO HAVE THROACENTESIS DONE STAT PER ORDERS. CALL LIGHT IN REACH WILL CONTINUE TO MONITOR.
[2019-10-12 09:35] LABS: International Normalized Ratio 1.18; Prothrombin Time Results 12.5 Sec (9.7-11.5)
--- NOTE | 2019-10-12 13:16 | NUR ---
Therapeutic Visit Pt resting in bed and appears significantly dyspneic and anxious as evidenced by work of breathing and difficulty speaking. Bedside RN Payton present offering Ativan. Called RT Kaelyn and requested breathing treatment. Pt shceduled for thoracentesis today. Discussed case with Payton. Palliative Care will F/U for symptom management.
[2019-10-12 16:28] LABS: Automated BF WBC Count 0.194 K/mm3 (0-999); Body Fluid WBC Count 194 /mm3 (0-999)
[2019-10-12 16:42] LABS: RBC Count, Body Fluid 127 /mm3 (0-0)
[2019-10-12 16:45] LABS: Lactate Dehydrogenase, Body Fl 69 U/L; Protein, Body Fluid 2.1 g/dL
[2019-10-12 16:46] LABS: Total Cell Count, Body Fluid 100
[2019-10-12 16:47] LABS: Appearance, Body Fluid Hazy (Clear); Color, Body Fluid L Yellow (None-Yellow)
[2019-10-12 17:06] LABS: pH, Body Fluid 7.9
--- NOTE | 2019-10-12 18:42 | NUR ---
SHIFT SUMMARY... PT HAD THORACENTESIS THIS AFTERNOON, 600MLS OF CLEAR STRAW COLORED FLUID WAS REMOVED, PT'S BREATHING GREATLY IMPROVED. PT'S VS STABLE. PT HAS BEEN TITRATED FROM 5L NC TO 3L NC WHICH IS HER BASELINE. PT STATES SHE FEELS MUCH BETTER. NO BLEEDING, SWELLING OR HEMATOMA NOTED AT THE SITE. CALL LIGHT IN REACH WILL CONTINUE TO MONITOR UNTIL REPORT IS GIVEN TO ONCOMING RN.
--- NOTE | 2019-10-12 19:05 | NUR ---
ASSUMED CARE OF PT AT 1900. REPORT RECEIVED AT BEDSIDE. PT PRESENTS IN BED. ASLEEP AT THIS TIME. PT IN NO APPARENT DISTRESS AT THIS TIME. WILL REVIEW CHART AND PLAN OF CARE FOR THIS PT.
--- NOTE | 2019-10-12 23:59 | NUR ---
PT HAS GOOD RESULTS FROM EARLIER LASIX DOSE. CALLS FOR ASSIST TO GET UP TO BEDSIDE COMMODE. DOES GET SOMEWHAT DYSPNEIC WITH ACTIVITY. BREATHING TECHNIQUES TAUGHT TO HELP PT MAINTAIN > 90 PERCENT SATURATIONS. WILL CONTINUE TO MONITOR PT.
[2019-10-13 04:55] LABS: Hematocrit 22.4 % (33.0-51.0); Hemoglobin 7.2 g/dL (11.5-16.0); Mean Corpuscular HGB 28.1 pg (26.0-34.0); Mean Corpuscular HGB Conc 32.1 g/dL (31.5-36.5); Mean Corpuscular Volume 88 fL (80-100); Platelet Count 194 K/mm3 (150-400); RDW Coefficient Variation 15.9 % (11.7-14.2); Red Blood Cell Count 2.56 M/mm3 (3.80-5.20); White Blood Cell Count 5.41 K/mm3 (4.00-11.30)
[2019-10-13 05:15] LABS: Bun/Creatinine Ratio 23.2 (12.0-20.0); Calcium, Blood 8.7 mg/dL (8.5-10.1); Creatinine, Blood 1.55 mg/dL (0.40-1.00); Potassium, Blood 4.9 mmol/L (3.5-5.5)
--- NOTE | 2019-10-13 06:25 | NUR ---
PT HAS BEEN UP TO BEDSIDE COMMODE WITH MODERATE ASSIST. NO COMPLAINTS OF PAIN OR VERTIGO WHEN UP. HAS MOIST COUGH WHEREAS SHE SPITS OUT INTO TISSUE. PT CONTINUES ON NC AT 3 L/M. DOES NEED INCREASE IN O2 WITH EXERTION. PT HAS JUST CALLED TO STATES SHE FEELS NAUSEAS, AND THAT SHE WANT TESSLON PERRLES. WILL ADMINISTER. WILL CONTINUE TO MONITOR PT, AND WILL REPORT OFF TO ONCOMING RN.
--- NOTE | 2019-10-13 07:48 | NUR ---
AM NOTE... ASSUMED CARE OF PT APROX 0700, RECEIVED REPORT AT PT'S BEDSIDE. PT IS A&Ox4. PT'S VS STABLE AT THIS TIME. PT C/O OF INCREASED WORK OF BREATHING, PROVIDER MADE AWARE AND PT WAS ASSESSED, DECREASED L/S HEARD ON THE RIGHT. PT IS ON 3L NC WHICH IS HER BASELINE. PT HAS 2+ PITTING EDEMA TO HER BLE AND NONPITTING/DEPENDENT EDEMA TO HER TRUNK/BUTTOCKS AREA. NO SKIN ISSUES NOTED AT THIS TIME. STAT CXR ORDERED. CALL LIGHT IN REACH WILL CONTINUE TO MONITOR.
--- NOTE | 2019-10-13 11:03 | NUR ---
Pt visit this AM with family at bedside. Pt resting in bed with her eyes closed. Pt appears comfortable with no S/S of distress at this time. Listened as family reports fluid is already building after yesterday's thorecentesis. Family reports suspicion this is due to her cancer. Family reports consideration of hospice. Encouraged family to have further discussions with the hospitalist and Dr Cha for making a decision. Family requests this RN present when Dr Silva visits. No other concerns reported at this time. Palliative Care will remain available.
--- NOTE | 2019-10-13 14:17 | NUR ---
Call to Dr. Silva regarding pt's nausea and vomiting. New order for phenergan oreceived and administered.
--- NOTE | 2019-10-13 18:42 | NUR ---
SHIFT SUMMARY... PT HAD N/V FOR SEVERAL HOURS THIS AFTERNOON. PT'S VS REMAINED STABLE, PT AND FAMILY SPOKE WITH PROVIDER ABOUT POSSIBLE COMFORT CARE AND PLUREX DRAIN PLACEMENT, SURGICAL CONSULT PLACED FOR PLUREX DRAIN, PALLIATIVE CARE IS CONSULTED AND ONBOARD. PT HAS BEEN UP TO THE BSC W/1 PER ASSIST. CALL LIGHT IN REACH WILL CONTINUE TO MONITOR UNTIL REPORT IS GIVEN TO ONCOMING RN.
--- NOTE | 2019-10-14 08:07 | NUR ---
SUMMARY NO ACUTE CHANGES NOTED THROUGH THE NIGHT. PT REMAINS ON 4 L O2 VIA NC, NAUSEA MEDICATED X1 PER PT REQUEST. BED ALARM FOR SAFETY. REPORT GIVEN TO DAY RN. CALL LIGHT IN REACH.
--- NOTE | 2019-10-14 16:37 | NUR ---
Family meeting outside of pt's room per family request as pt is tired and wants to rest. Son, Avelino, is the family spokesperson as Carol Ann lives with Avelino and his . Multiple family members present. Discussed hospice as an option and the possibility of beginning comfort care in the hospital. Answered questions re: hospice and services that are provided and those that are not provided by hospice (caregivers in the home.) Provided information on all three local hospice agencies with soonest admission dates in their programs [facility] (10/16), [facility] (10/17) and [facility] (same day.) Pt's family would like to talk about options and talk with Carol Ann before they decide. Encouraged them to take some time and ask questions if needed. Earlier today, this production underwriter spoke with staff at [facility] and [facility] and both stated that pt could have thoracenteses on a case by case basis as an outpatient for comfort as pt is not a candidate for a pleurX. Pt's DIL, Avelino's , reports that she has had contact with [facility] and is planing to call them on Thursday to see if Carol Ann would be able to qualify for any services. They report she only has her social security income and no other assests. Their biggest concern is not being able to provide 24 hour care without extra assistance. Encouraged them to talk with family about seeing who may be available to help out and staff can provide them with local caregiving agencies if they would like to pay privately for caregivers. Family wanted to talk to Carol Ann themselves about starting comfort care in the hospital. Offered to be present for that conversation, but family stated they would like to do it. Family contacted staff after they spoke with pt and they have all decided to transition to comfort care at this time. Family plans to talk about which hospice agency they would like to use and will notify staff on Thursday of their choice. They would like pt to stay here over the weekend while they prepare for her to come home with hospice. Nursing and Dr. Capps updated and comfort care order set placed per Dr. Capps's request. Pt would like to rest now. PC will continue to follow for symptom managment and family and pt education re: hospice and discharge planning.
--- NOTE | 2019-10-14 17:34 | NUR ---
PCU SHIFT SUMMARY CONTINUES AO TO PERSON, PLACE, TIME, AND SITUATION. COOPERATIVE AND PLEASANT. FAMILY PRESENT THRUOGHUOT SHIFT. 4LPM VIA NASAL CANULA. SOB W/EXERTION & WHEN LAYING FLAT. AFIB 100s. REPORTING NAUSEA, PRN ZOFRAN SEMI-EFFECIVE. TUMS EFFECTIVE. CONT OF BLADDER. ONE PERSON SBA TO AND FROM COMMODE. 18G RIGHT AC, NO OBSERVABLE IV RELATED COMPLICATIONS. FAMILY/PATIENT AGREED TO TRANSITION TO COMFORT CARE. PATIENT IN BED COMFORTABLE CALL LIGHT WITHIN REACH.
--- NOTE | 2019-10-15 00:38 | NUR ---
PT A&O; STATED LAST DOSE OF ROXYNOL HELPED BUT MADE HER FEEL NAUSIOUS; PT REPOSITIONED; CALL LIGHT IN REACH; SUCTION IN REACH; VSS; DENIES OTHER NEEDS; BED IN LOWEST POSITION
--- NOTE | 2019-10-15 00:45 | NUR ---
PT DENIES NEEDS; DENIES REPOSITIONING; CALL LIGHT IN REACH; BED IN LOWEST POSITION
--- NOTE | 2019-10-15 03:39 | NUR ---
PT REQUESTED PAIN MEDS; 5 OF 10 PAIN NOTED; ROXYNOL GIVEN PER EMAR; PT DENIES NAUSEA; CALL LIGHT IN REACH; BED IN LOWEST POSITION
--- NOTE | 2019-10-15 05:40 | NUR ---
SHIFT SUMMARY PT A&O; REPSITIONED; C/O PAIN AND MEDICATED PER EMAR 1X THIS SHIFT; PT RESTED EASILY IN BETWEEN INTERVENTIONS; PT SELF SUCTIONS NEEDED; CALLS APPROPRIATELY; DENIES NEEDS AT THIS TIME; CALL LIGHT IN REACH; BED IN LOWEST POSITION; WILL CONTINUE TO MONITOR CLOSELY UNTIL HAND OFF TO DAY SHIFT RN
--- NOTE | 2019-10-15 09:20 | NUR ---
PT RESTING QUIETLY, AWAKE, DURING SHIFT REPORT. DENIED NEEDS AT THAT TIME. REPORTED BEING MEDICATED FOR PAIN PREVIOUSLY AND WAS COMFORTABLE. RADIOLOGY CALLED TO CK ON PT STATUS, THEN CAME TO ROOM FOR CXR TO DETERMINE IF US THORACENTESIS WOULD BE EFFECTIVE.
--- NOTE | 2019-10-15 09:26 | NUR ---
IMAGING CALLED TO REPORT "NOT ENOUGH FLUID IN THERE TO SAFELY REMOVE". DR DOS SANTOS NOTIFIED. PT AND FAMILY UPDATED.
--- NOTE | 2019-10-15 16:01 | NUR ---
RECEIVED REPORT from [facility] nurse, comfort care pt, arrived at 1534, a+o, noted bruising on r foot, family arrived and sitting around telling stories, will continue to monitor and treat as appropriate
--- NOTE | 2019-10-15 16:26 | NUR ---
COMFORT CARE VISIT- PT smiling, laughing with many family members in her room, shortly after arriving to rm [id number]. She appears to be holding court with approx 10 family members around her bad, laughing and sharing stories. BERENICE had additional questions re: homegoing with hospice when able. RN working on assessment and admission to medical floor. I did not interupt family visit at this time. Plan to visit in am for s/s assessment. Margo Parra, states that Carol Ann has continued to have a great day, the best in a long time, in regard to management of anxiety, dyspnea and pain.
--- NOTE | 2019-10-15 18:50 | NUR ---
comfort care pt, resting quietly, states her thoat hurts when she eats but that the medication only reduces the pain, she declined more pain medication, stated she was happy to see her faimily there and was looking forward to sleeping tonight now that the pain had been aliveated, call light in reach, bed in low position, will share bsr with noc staff and pt.
--- NOTE | 2019-10-16 07:36 | NUR ---
PT ON COMFORT CARE. PT OFFERED TO BE REPOSITIONED MULTIPLE TIMES THROUGOUT THE NIGHT BUT SHE LIKES TO HAVE HER HIPS FLOATED. I MANAGED TO TALK PT INTO REPOSITION PT ON HER SIDE FOR A LITTLE WHILE. PT MEDICATED ONCE FOR PAIN TONIGHT. I ASKED IF SHE WAS HAVING PAIN OTHER TIMES OF THE NIGHT TO WHICH SHE DENIED. PT APPEARS TO HAVE SLEPT WELL TONIGHT. NO SOB. BRUNSON DRAINING YELLOW CLEAR URINE. REPORT GIVEN TO AM NURSE.
--- NOTE | 2019-10-16 07:52 | NUR ---
PT MEDICATED FOR PAIN THIS AM, PT APPEARS TO BE COMFORTABLE
--- NOTE | 2019-10-16 09:44 | NUR ---
PT APPEARS COMFORTABLE, CONTINUES TO REPORT MILD PAIN BUT DECLINED ROXINOL AT THIS TIME
--- NOTE | 2019-10-16 11:47 | NUR ---
PT APPEARS TO BE COMFORTABLE AT THIS TIME, FAMILY AT THE BEDSIDE, PT DECLINED ROXINOL AT THIS TIME
--- NOTE | 2019-10-16 14:05 | NUR ---
PT IS SLEEPING AT THIS TIME, HOB ELEVATED, PT LOOKS COMFORTABLE, FAMILY WAS IN TO SEE THE PT EARLIER TODAY
--- NOTE | 2019-10-16 17:22 | NUR ---
PT IS A/OX3, PLEASANT AND COOPERATIVE, THE PT IS ON COMFORT CARE AT THIS TIME, THE PT WAS MEDICATED FOR PAIN THIS AM X1, THE PT HAS OTHERWISE DECLINED ROXINOLE T/O THE REST OF THE DAY SO FAR, PT APPEARS TO BE BREATHING EASILY AT REST, MULTIP[LE FAMILY HAVE BEEN IN TO VISIT WITH THE PT, THE PT HAS BEEN REPOSITIONED OFF AND T/O THE DAY, CALL LIGHT IN REACH, WILL CONTINUE TO MONITOR AND ASSESS FOR CHANGES
--- NOTE | 2019-10-17 07:09 | NUR ---
DANCE STUDIO MANAGER SUMMARY PT ON COMFORT CARE. PT AND PT'S FAMILY MEMBER REQUESTED TO NOT BOTHER PT DURING THE NIGHT. PT WAS COMFORTABLE THE WHOLE NIGHT AND DID NOT WANT TO BE REPOSIONTED. I WAS GOING TO GIVE STOOL SOFTNER ORDERED FOR LAST NIGHT BUT PT WAS ASLEEP FOR A GOOD CHUNK OF PERIOD. I ASKED IF PT WAS FEELING CONSTIPATED LATER ON IN THE NIGHT WHILE SHE WAS AWAKE. SHE SAID "WELL NOT REALLY CONSTIPATED" SHE STATED SHE JUST HAS NOT HAD A BM FOR AWHILE. SHE ALSO HAS NOT HAD MUCH TO EAT. WARM PRUNE JUICE WAS OFFERED. PT OVERALL SLEPT WELL TONIGHT. NO COMPLAINTS OF PAIN. BRUNSON DRAINING CLEAR YELLOW URINE.
--- NOTE | 2019-10-17 12:41 | NUR ---
pt appears to be comfortable at this time, the pt declined morpnine at this time, pt appears to be breathing easily on o2 at this time
--- NOTE | 2019-10-17 12:43 | NUR ---
PT APPEARS COMFORTABLE AT THIS TIME, FAMILY IS AT THE BEDSIDE
--- NOTE | 2019-10-17 12:48 | NUR ---
PT RESTING IN BED PT REPORTS NO APPETITE AT THIS TIME, PT WAS REPOSITIONED, STATES THAT SHE IS COMFORTABLE AT THIS TIME
--- NOTE | 2019-10-17 14:42 | NUR ---
pts daughter is at the bedside, pt appears to be comfortable
--- NOTE | 2019-10-17 16:02 | NUR ---
pt appears to be slepping at this time, appears comfortable o2 on
--- NOTE | 2019-10-17 16:45 | NUR ---
Routine spiritual care note: Mrs. Helm was alone in room. she wakens to voice, but says she is "tired" and "just wants to sleep." Prayer provided at bedside. She denies pain and appears comfortable. I will remain available.
--- NOTE | 2019-10-17 18:22 | NUR ---
PT GIVEN ROXINOL 20 MG, O2 ON @ 3L/MIN, PT APPEARS TO BE BREATHING EASILY AT REST, PLAN TO DC TOMORROW AT 10:00 AM HOME WITH HOSPICE
--- NOTE | 2019-10-17 19:08 | NUR ---
pt resting repeort from nursing on comfort is good family in and out to visit.
--- NOTE | 2019-10-18 05:26 | NUR ---
PT with advanced lung cancer x 2.5 years of treatment to be DC home with Family support today. She has Hospice arranged. She marcela no to be woken during night. She is resting comfortably with dior cath in place. Oxygen 3 l NC.
--- NOTE | 2019-10-18 07:50 | NUR ---
pt reports feeling comfortable, slept well last night, pt appears to be breathing easilyon o2 @ 3l/min at this time
--- NOTE | 2019-10-18 09:08 | NUR ---
Pt resting in bed and denies pain and dyspea at this time. Listened as Pt reports being at peace with plan. Pt reports plan to discharge today. No concerns reported at this time. Spoke with Bedside IRLANDA Handley and discussed case. Palliative Care will remain available.
[2019-10-18] MEDS ORDERED: ATROPINE SULFATE2 ML SL (10:35)
[2019-10-18] MEDS ORDERED: ACET325 PO (10:35)
[2019-10-18] MEDS ORDERED: BENZ100A PO (10:36)
[2019-10-18] MEDS ORDERED: MORP20L SL (10:36)
[2019-10-18] MEDS ORDERED: TUMS500 MG PO (10:36)
[2019-10-18] MEDS ORDERED: Transderm-Scop1 EACH TD (10:37)
--- NOTE | 2019-10-18 11:51 | NUR ---
PT DISCHARGED DC ORDERS GIVEN BY EYEGLASS CUTTERIRLANDA BAIG, PT AND FAMILY VERBALIZED UNDERSTANDING OF THE INSTRUCTIONS, THE PT WAS TRANSFERED VIA GURNEY, PT WAS A/OX3, APPEARED TO BE BREATHING EASILY ON O2, PT WAS MEDICATED WITH ROXINOL JUST PRIOR TO DC
== END 2019-10-18 11:16 | disposition hospice, home (50) | DRG 871 ==
LOC: ER 14:49 → PCU 16:28 → MEDS 10-15 15:45 → ENPENDDIS 10-18 10:36 → MEDS 10-18 11:16
PROVIDERS: Internal Medicine; Physician Assistant; ADMIT Internal Medicine
PROC: 0W993ZZ Drainage of Right Pleural Cavity, Percutaneous Approach (ICD-10-PCS; principal; 2019-10-12)
DX: A41.9 Sepsis, unspecified organism (principal); J18.9 Pneumonia, unspecified organism; J96.21 Acute and chronic respiratory failure with hypoxia; I50.33 Acute on chronic diastolic (congestive) heart failure; N17.9 Acute kidney failure, unspecified; C34.90 Malignant neoplasm of unspecified part of unspecified bronchus or lung; I13.0 Hypertensive heart and chronic kidney disease with heart failure and stage 1 through stage 4 chronic kidney disease, or unspecified chronic kidney disease; N18.4 Chronic kidney disease, stage 4 (severe); E87.1 Hypo-osmolality and hyponatremia; I48.20 Chronic atrial fibrillation, unspecified; J44.0 Chronic obstructive pulmonary disease with (acute) lower respiratory infection; J91.0 Malignant pleural effusion; Z51.5 Encounter for palliative care; D63.8 Anemia in other chronic diseases classified elsewhere; Z87.891 Personal history of nicotine dependence; K59.00 Constipation, unspecified; Z88.0 Allergy status to penicillin; Z91.040 Latex allergy status; R65.20 Severe sepsis without septic shock; Z92.21 Personal history of antineoplastic chemotherapy; Z99.81 Dependence on supplemental oxygen; Z66 Do not resuscitate
CPT/HCPCS: 0099U; 32555; 36415; 71045; 76604; 76770; 80048; 80053; 81001; 83615; 83690; 83880; 83986; 84145; 84157; 84295; 84484; 85025; 85027; 85610; 85730; 87070; 87077; 87086; 87186; 87205; 89051; 93005; 93010; 93308; 93356; 94640; 94660; 94667; 94760; 94762; 96361; 96365; 96375; 99285-25; A9270; A9270-GY; J1644; J1650; J1940; J1956; J2405; J2550; J2930; J7030; J7120